=== PATIENT | female | born 1975 | race Asian ===

== ENCOUNTER 2016-07-08 20:49 | Emergency (ER) | payer BC ==
[~2016-07-08] VITALS: Ht 152.4 cm; Wt 49.9 kg
[2016-07-08 20:55] VITALS: BP 105/79; PULSE 96; RESP 16; TEMP 98.6; O2SAT 98
--- NOTE | 2016-07-08 21:04 | NUR ---
Patient to ER bed 6 to gown for evaluation. Side rails up. Report given to Peace CARPENTER.
--- NOTE | 2016-07-08 21:04 | NUR ---
Patient to ER bed 6 to gown for evaluation. Side rails up. Report given to PAULINE Hand.
--- NOTE | 2016-07-08 21:09 | NUR ---
Patient to ER C/O severe UTI symptoms frequency, pain with urination. States OTC AZO is not working. AAOx4, unlabored breathing, no signs of acute distress.
[2016-07-08 21:22] LABS: BILIRUBIN,URINE 2+ (NEGATIVE); BLOOD, URINE 3+ (NEGATIVE); CLARITY/URINE SL CLOUDY (CLEAR); COLOR,URINE ORANGE (YELLOW); GLUCOSE,URINE TRACE (NEGATIVE); KETONES,URINE NEGATIVE (NEGATIVE); LEUKOCYTE ESTERASE ,URINE 2+ (NEGATIVE); NITRITE, URINE POSITIVE (NEGATIVE); PH,URINE 6.5 (5.0-8.0); PROTEIN URINE 3+ (NEGATIVE)
--- NOTE | 2016-07-08 21:42 | NUR ---
ER TASHI Nava at bedside for evaluation
--- NOTE | 2016-07-08 21:42 | NUR ---
Note undone in EDM - 07/08/16 at 2317 by DONNIE Patient given written and verbal discharge instructions and verbalizes understanding. ER TASHI Nava discussed with patient the results and treatment provided. Patient in stable condition. ID arm band removed. Rx of cipro, rocephin, motrin given. Patient educated on pain management and to follow up with PMD. Pain Scale 0/10. Opportunity for questions provided and answered.
[2016-07-08 21:46] LABS: BACTERIA,URINE MANY /HPF (None Seen); MUCUS,URINE None Seen /LPF (None Seen); RBC,URINE 80-100 /HPF (0-3); WBC,URINE >100 /HPF (0-3)
[2016-07-08] MEDS ORDERED: IBUPROFEN 800 MG TABLET PO ONE (22:00)
[2016-07-08] MEDS ORDERED: cefTRIAXone 1 GM VIAL IM ONE (22:00)
[2016-07-08] MEDS ORDERED: CIPROFLOXACIN HCL 500 MG TABLET PO ONE (22:00)
[2016-07-08 22:42] VITALS: BP 112/74; PULSE 84; RESP 15; TEMP 98.4; O2SAT 99
--- NOTE | 2016-07-08 22:42 | NUR ---
Patient given written and verbal discharge instructions and verbalizes understanding. ER [employer]OCIATE Brandy discussed with patient the results and treatment provided. Patient in stable condition. ID arm band removed. Rx of cipro, rocephin, motrin given. Patient educated on pain management and to follow up with PMD. Pain Scale 0/10. Opportunity for questions provided and answered.
== END 2016-07-08 22:42 | disposition home or self-care (01) ==
LOC: SED 20:49
DX: N39.0 Urinary tract infection, site not specified (principal)
CPT/HCPCS: 81000; 81025; 87086; 96372; 99284; J0696; 87186-TC

== ENCOUNTER 2023-01-10 02:13 | Emergency (ER) | payer BC ==
[~2023-01-10] VITALS: Ht 152.4 cm; Wt 57.2 kg
[2023-01-10 02:24] VITALS: BP_SYST 138; PULSE 69; RESP 16; TEMP 97.9; O2SAT 97
[2023-01-10 02:36] LABS: CLARITY/URINE SLIGHTLY CLOUDY (CLEAR); COLOR,URINE YELLOW (YELLOW); GLUCOSE,URINE NEGATIVE (NEGATIVE); KETONES,URINE NEGATIVE (NEGATIVE); PROTEIN URINE 1+ (NEGATIVE)
[2023-01-10] MEDS ORDERED: CIPR500T5 PO (02:36)
[2023-01-10] MEDS ORDERED: PHEN-890 PO (02:36)
[2023-01-10 02:37] LABS: BILIRUBIN,URINE NEGATIVE (NEGATIVE); BLOOD, URINE 2+ (NEGATIVE); LEUKOCYTE ESTERASE ,URINE TRACE (NEGATIVE); NITRITE, URINE NEGATIVE (NEGATIVE)
[2023-01-10 02:53] VITALS: BP_SYST 135; PULSE 70; RESP 16; TEMP 98.1; O2SAT 97
[2023-01-10 02:58] LABS: BACTERIA,URINE RARE /HPF (None Seen)
== END 2023-01-10 02:53 | disposition home or self-care (01) ==
LOC: SED 02:13
DX: N39.0 Urinary tract infection, site not specified (principal); R30.0 Dysuria; R10.30 Lower abdominal pain, unspecified; Z79.899 Other long term (current) drug therapy
CPT/HCPCS: 81000; 99283